=== PATIENT | male | born 1935 | race Caucasian/White ===

== ENCOUNTER → 2019-05-16 | Outpatient (CLI) | payer MEDICARE ==
[~2019-05-16] MED LIST: REGADENOSON 0.4 MG/5 ML SYR IV ONE
== END ==
LOC: NM 07:36
PROVIDERS: ATTEND Internal Medicine
DX: R07.9 Chest pain, unspecified (principal)
CPT/HCPCS: 78452; 93017; 93306; A9502; J2785

== ENCOUNTER 2019-09-14 10:12 | Inpatient (IN) | payer MEDICARE ==
[~2019-09-14] VITALS: Ht 172.7 cm; Wt 85.6 kg
--- OUTSIDE RECORDS SUMMARY | 2019-09-14 10:16 | XMS REPORT ---
Author Author [facility] Address Unknown Phone Unavailable Care Team Providers Care [employer] Name Role Phone Marissa HAYDEN Unavailable Unavailable Problems This patient has no known problems. Allergies, Adverse Reactions, Alerts This patient has no known allergies or adverse reactions. Medications This patient has no known medications. Results Test Description Test Time Test Comments Text Results Atomic Results Result Comments Stress Test - Treadmill ONLY 2019-05-22 11:40:00 [place] [address] Patient Name : ANGELICA STRANGE MR #: [id number] : 1935 Age/Sex: 83/M Adm Physician : AIMEE HAYDEN MD Admit Date : 05/16/19 Location : [place] Room/Bed : REPORT: Myoview Stress Test DATE OF STUDY: 05/16/2019 08:02:00 Stress Test - Treadmill ONLY PROCEDURE: Rest/stress single isotope SPECT imaging with pharmacologic stress and gated SPECT imaging. INDICATION: Chest pain. PROCEDURE IN DETAIL: Pharmacologic stress testing was performed with regadenoson per protocol. The heart rate was 63 beats per minute at rest and increased to 81 beats per minute during the regadenoson infusion. The resting blood pressure was 157/83 mmHg and increased to 182/82 mmHg, which is a normal response. The resting electrocardiogram demonstrated normal sinus rhythm with ST-segment abnormalities. There were no ST-segment changes suggestive of myocardial ischemia. Myocardial perfusion imaging was performed at rest following the injection of 11 mCi of tetrofosmin. At peak pharmacologic effect, the patient was injected with 32.7 mCi of tetrofosmin. Gated post-stress tomographic imaging was performed. FINDINGS: The overall quality of the study is fair. Left ventricular cavity is noted to be normal size on the rest and stress studies. SPECT images demonstrate a small moderate perfusion defect in the inferolateral wall on stress that is not present at rest. Gated SPECT imaging reveals normal myocardial thickening and wall motion. The left ventricular ejection fraction was calculated to be 50%. IMPRESSION: Myocardial perfusion imaging is abnormal. There is a small area of ischemia in the inferolateral wall. Left ventricular systolic function was normal without regional wall motion abnormalities. Aimee Hayden MD ABS/DAVEY /[id number] Signature Date Dictated By: AIMEE HAYDEN MD Transcribed By: DAVEY on 05/22/19 <Electronically signed by AIMEE HAYDEN MD><<Signature on File>>06/02/19 2301 COPY TO:
[2019-09-14] MEDS ORDERED: SODIUM CHLORIDE 0.9% 500ML 500 ML IV STA (10:20)
[2019-09-14] MEDS ORDERED: CEFTRIAXONE SOD 1 GM VIAL IV ONE (10:45)
[2019-09-14 10:56] LABS: BASOPHILS % 0.6 % (0.0-1.0); EOSINOPHILS # (AUTO) 0.1 (0.0-0.4); EOSINOPHILS % 1.2 % (0.0-6.0); HEMATOCRIT 40.7 % (38.2-49.6); HEMOGLOBIN 13.5 g/dL (14.0-18.0); LYMPHOCYTES # (AUTO) 0.8 (1.0-3.2); LYMPHOCYTES % 16.2 % (18.0-39.1); MEAN CORPUSCULAR HEMOGLOBIN 30.4 pg (28-32); MEAN CORPUSCULAR HGB CONC 33.2 g/dL (31-35); MEAN CORPUSCULAR VOLUME 91.7 fL (81-99); MONOCYTES # (AUTO) 0.3 (0.2-0.8); MONOCYTES % 6.4 % (4.4-11.3); NEUTROPHILS # (AUTO) 3.6 (2.1-6.9); NEUTROPHILS % 75.2 % (38.7-80.0); PLATELET COUNT 182 x10e3/uL (140-360); RED BLOOD COUNT 4.44 x10e6/uL (4.3-5.7)
[2019-09-14] MEDS ORDERED: CEFTRIAXONE SOD 1 GM/NS 50 ML 50 ML IV ONE (11:00)
[2019-09-14 11:11] LABS: INR 1.57; PROTHROMBIN TIME 19.3 seconds (11.9-14.5)
[2019-09-14 11:12] LABS: PARTIAL THROMBOPLASTIN TIME 40.8 seconds (23.8-35.5)
[2019-09-14 11:24] LABS: ALANINE AMINOTRANSFERASE 16 IU/L (0-55); ALBUMIN 3.5 g/dL (3.5-5.0); ALBUMIN/GLOBULIN RATIO 1.1 (0.8-2.0); ANION GAP 16.6 mmol/L (8-16); BLOOD UREA NITROGEN 21 mg/dL (7-26); BUN/CREATININE RATIO 18 (6-25); CALCIUM 8.9 mg/dL (8.4-10.2); CARBON DIOXIDE 20 mmol/L (22-29); CHLORIDE 107 mmol/L (98-107); CREATININE, SERUM 1.14 mg/dL (0.72-1.25); EST GLOMERULAR FILTRATION RATE > 60 ML/MIN (60-); GLUCOSE 172 mg/dL (74-118); POTASSIUM 3.6 mmol/L (3.5-5.1); SODIUM 140 mmol/L (136-145)
[2019-09-14] MEDS ORDERED: LIDOCAINE JELLY 2% 10ML URO-JET ONE (11:33)
[2019-09-14 11:35] LABS: ALKALINE PHOSPHATASE 67 IU/L (40-150)
[2019-09-14 11:36] LABS: CLARITY,URINE TURBID (CLEAR); COLOR,URINE RED (YELLOW)
[2019-09-14 11:41] LABS: BILIRUBIN,URINE MODERATE (NEGATIVE); KETONES,URINE 1+ (NEGATIVE); LEUKOCYTE ESTERASE ,URINE NEGATIVE (NEGATIVE); NITRITE,URINE POSITIVE (NEGATIVE); PROTEIN,URINE DIPSTICK 3+ (NEGATIVE); URINE UROBILINOGEN 1 mg/dL (0.2 - 1)
[2019-09-14 11:42] LABS: RBC,URINE >50 /HPF (0-5)
[2019-09-14] MEDS ORDERED: LACTATED RINGER'S 1,000 ML IV SCH (11:52)
[2019-09-14] MEDS ORDERED: ZOLPIDEM TARTRATE 5 MG TAB PO PRN (12:00)
[2019-09-14] MEDS ORDERED: CLONIDINE HCL 0.1 MG TAB PO PRN ×2 (12:00→12:30)
[2019-09-14] MEDS ORDERED: LIDOCAINE JELLY 2% 10ML URO-JET TOP ONE (12:00)
[2019-09-14] MEDS ORDERED: DIPHENHYDRAMINE HCL INJ 50 MG/ML VIAL IV PRN ×2 (12:00→12:30)
[2019-09-14] MEDS ORDERED: PROMETHAZINE 12.5MG/ NACL 0.9% 12.5 MG/50 ML BAG IV PRN ×2 (12:00→12:30)
[2019-09-14] MEDS ORDERED: ACETAMINOPHEN 325 MG TAB PO PRN (12:00)
[2019-09-14] MEDS ORDERED: SODIUM CHLORIDE 0.9% 250ML IRRIG IR ONE (12:00)
[2019-09-14] MEDS ORDERED: ONDANSETRON HCL INJ 2MG/ML 2ML 2 MG/ML VIAL IV PRN ×2 (12:00→12:30)
[2019-09-14] MEDS ORDERED: ENALAPRILAT IV INJ 1.25 MG/ML VIAL IV PRN ×2 (12:00→12:30)
--- NOTE | 2019-09-14 12:21 | NUR ---
PT ARRIVED TO ROOM 100 VIA STRETCHER; PT AWAKE, ALERT, NO SIGNS OF DISTRESS. ORIENTED X3. PT TRANSFERRED FROM STRETCHER TO BED; MILTON INTACT, DRAINING STERN RED URINE; IV TO LUE INTACT. NO COMPLAINTS AT THIS TIME. WILL CONTINUE TO MONITOR.
[2019-09-14 12:22] VITALS: BP 124/77
[2019-09-14] MEDS ORDERED: DEXTROSE 50% SYRINGE 50 ML IV PRN ×2 (12:30→12:45)
[2019-09-14 12:42] VITALS: BP 124/77
[2019-09-14] MEDS ORDERED: ATORVASTATIN CA20 MG PO (13:31)
[2019-09-14] MEDS ORDERED: LISINOPRIL10 MG PO (13:31)
[2019-09-14] MEDS ORDERED: METFORMIN HCL500 MG PO (13:31)
[2019-09-14] MEDS ORDERED: ASPIRIN81 MG PO (13:31)
[2019-09-14] MEDS ORDERED: AVODART0.5 MG PO (13:31)
[2019-09-14] MEDS ORDERED: CLOPIDOGREL75 MG PO (13:31)
[2019-09-14] MEDS ORDERED: TERAZOSIN HCL5 MG PO (13:31)
[2019-09-14] MEDS ORDERED: ELIQUIS5 MG PO (13:31)
[2019-09-14] MEDS: LACTATED RINGER'S 1,000 ML IV SCH (13:44)
--- NOTE | 2019-09-14 13:46 | Diagnostic Imaging Report ---
EXAM: CT Abdomen and Pelvis WITH contrast INDICATION: ^look for appy, diverticulitis,sbo, panreatitis, hernia, rup ^[id number] ^1200 ^Y COMPARISON: None. TECHNIQUE: Abdomen and pelvis were scanned utilizing a multidetector helical scanner from the lung base to the pubic symphysis after administration of IV contrast. Coronal and sagittal reformations were obtained. Dose modulation, iterative reconstruction, and/or weight based adjustment of the mA/kV was utilized to reduce the radiation dose to as low as reasonably achievable. Routine protocol was performed. Scan was performed when during portal venous phase. IV CONTRAST: 150 mL of Omnipaque 300 ORAL CONTRAST: Water COMPLICATIONS: None RADIATION DOSE: Total DLP: 608.44 mGy-cm Estimated effective dose: (DLP x 0.015 x size factor) mSv CTDIvol has been reviewed. It is below the limits set by the Radiation Protocol Committee (RPC). FINDINGS: LINES and TUBES: None. LOWER THORAX: Bilateral moderate pleural effusions with associated atelectasis. HEPATOBILIARY: No focal hepatic lesions. No biliary ductal dilation. GALLBLADDER: Not seen. SPLEEN: No splenomegaly. PANCREAS: No focal masses or ductal dilatation. ADRENALS: No adrenal nodules KIDNEYS/URETERS: Kidneys enhance symmetrically. No hydronephrosis. There are scattered too small to characterize right renal cortical hypodensites, likely benign. No stones. GI TRACT: No abnormal distention, or evidence of bowel obstruction. Mild wall thickening of the ascending and transverse colon is seen. Appendix is not clearly identified. There is however no fat stranding or adenopathy in the right lower quadrant to suggest appendicitis. PELVIC ORGANS/BLADDER: The bladder is collapsed surrounding a Newman catheter. There is an ill-defined enhancing soft tissue mass appears to arise from posterior aspect of bladder, indeterminate. LYMPH NODES: No lymphadenopathy. VESSELS: There is moderate atherosclerotic disease in the aorta and major arterial branches. PERITONEUM / RETROPERITONEUM: No free air or fluid. BONES: There are degenerative changes in the lumbar spine. SOFT TISSUES: Small fat-containing left inguinal hernia. IMPRESSION: 1. No evidence of appendicitis. 2. Mild wall thickening of the ascending and transverse colon likely infectious or inflammation in etiology. 3. An ill-defined enhancing soft tissue mass appears to arise from posterior aspect of bladder, indeterminate. Recommend further evaluation with cystoscopy. 4. Bilateral moderate pleural effusions with associated atelectasis. 5. Signed by: Los Ta MD on 09/14/2019 1:44 PM
[2019-09-14] MEDS ORDERED: INSULIN REGULAR, HUMAN 100 UNIT/1 ML 3ML VIAL SQ SCH (16:30)
[2019-09-14] MEDS: INSULIN REGULAR, HUMAN 100 UNIT/1 ML 3ML VIAL SQ SCH ×2 (16:42→21:04)
[2019-09-14] MEDS ORDERED: FAMOTIDINE 20 MG/2 ML VIAL IV SCH ×2 (17:00)
[2019-09-14 17:17] VITALS: BP 157/83
[2019-09-14] MEDS ORDERED: IOPAMIDOL 370 MG/ML 200 ML INFUS..BTL INJ ONE (18:16)
[2019-09-14 20:00] VITALS: BP 131/85
[2019-09-14] MEDS ORDERED: ACETAMINOPHEN 325 MG TAB ONE (20:43)
[2019-09-14] MEDS ORDERED: CEFTRIAXONE SOD 1 GM VIAL IV SCH ×2 (21:00)
--- NOTE | 2019-09-14 21:21 | NUR ---
CONTINUOUS IRRIGATION IS ON GOING, URINE LOOKS LIGHT PINK AT THIS TIME. NO ACUTE DISTRESS NOTED, PATIENT IS RESTING AND CLOSED EYES. TYLENOL PRN GIVEN, WILL CONTINUE TO MONITOR.
[2019-09-14 21:34] VITALS: BP 131/85
[2019-09-14] MEDS: ZOLPIDEM TARTRATE 5 MG TAB PO PRN (22:39)
[2019-09-14] MEDS: CEFTRIAXONE SOD 1 GM/NS 50 ML 50 ML IV SCH (22:39)
[2019-09-14 23:07] VITALS: BP 143/59
[2019-09-15] VITALS (8 sets, daily range): BP systolic 120–179; BP diastolic 59–95
[2019-09-15] MEDS: LACTATED RINGER'S 1,000 ML IV SCH ×2 (03:30→16:53)
--- NOTE | 2019-09-15 03:35 | NUR ---
PATIENT IS AWAKE, DENIED ANY PAIN OR FEELING PRESSURE TO BLADDER, IRRIGATION IS STILL CONTINUED, LIGHT PINK URINE NOTED, CLONIDINE PRN GIVEN DUE TO ELEVATED BP. WILL CONTINUE TO MONITOR.
--- NOTE | 2019-09-15 04:47 | NUR ---
RECHECKED BP AFTER CLONIDINE PRN GIVEN, ITS 146/95, PULSE 69. NO DISTRESS NOTED PATIENT RESTING.
--- NOTE | 2019-09-15 05:57 | NUR ---
CLARIFIED IV FLUID ORDER WITH DR ONTIVEROS, PER CONTINUE IV FLUID AT THE SAME RATE.
--- NOTE | 2019-09-15 06:12 | NUR ---
H&P cc: bloody urine HPI: 84yoM, PCP , Cardio , developed bloody urine on plavix and apixaban. Developed bloody urine for 2 days; PMH: DM2, HTN, CAD s/p 4 stent 05/2019 and 06/2019, hx cigs, PAF PSh: coronary stents x4 in 2019, hernia, cholecystectomy Allergies; see emr Fh/SH; ; hx cigs meds; see MAR ROS; no f/c/s/N/V/D/ANAYA/cp/sob/dizziness/vision changes/skin rash/focal limb weakness v/s; revd PE tired appearing anicteric ns1s2 mod bs soft nt nd BLOODY urine in de [place] garza no leg edema skin dry n. affect a&ox3; rivera labs/meds revd A/P Gross Hematuria Acute colitis DM2 Overweight BMI 28.6 Nicotine dependence in remission CAD with hx stents in 06/2019 PLAN Bladder irrigation; urology eval; IVF; hba1c/lipids; ssi; Leno Arteaga MD, PhD.
--- NOTE | 2019-09-15 07:00 | NUR ---
BEDSIDE SHIFT REPORT RECEIVED FROM MARIA ESTHER WILKS. PT DENIES NEEDS AT THIS TIME.
[2019-09-15 07:24] LABS: CHOL/HDL RATIO 2.5 (3.9-4.7)
[2019-09-15] MEDS: FAMOTIDINE 20 MG TAB PO SCH ×2 (07:58→16:51)
[2019-09-15] MEDS: INSULIN REGULAR, HUMAN 100 UNIT/1 ML 3ML VIAL SQ SCH ×4 (07:59→21:00)
[2019-09-15] MEDS ORDERED: ONDANSETRON HCL 4 MG ORAL DISINTEGRATING TAB PO PRN (08:15)
[2019-09-15] MEDS: DUTASTERIDE 0.5 MG CAP PO SCH (08:40)
[2019-09-15] MEDS: TERAZOSIN HCL 5 MG CAP PO SCH (08:40)
[2019-09-15] MEDS: LISINOPRIL 10 MG TAB PO SCH ×2 (08:40→16:52)
[2019-09-15] MEDS: CEFTRIAXONE SOD 1 GM/NS 50 ML 50 ML IV SCH ×2 (11:45→23:00)
[2019-09-15] MEDS: METOPROLOL TARTRATE 25 MG TAB PO SCH ×2 (14:04→22:00)
--- NOTE | 2019-09-15 20:00 | NUR ---
INITIAL ASSESSMENT COMPLETE, IV INTACT, C/O PAIN IN BLADDER AREA, CONTINUE TO MONITOR IRRIGATION AND MILTON, LEAKING AT THE TIP SITE, 24 FR MILTON WITH THREE WAY CATH, CALL LIGHT IN REACH, ASSIST TO BATHROOM WHEN NEEDED. NO DISTRESS NOTED, VS WNL
[2019-09-15] MEDS ORDERED: ATORVASTATIN 20 MG TAB PO SCH (21:00)
--- NOTE | 2019-09-15 21:00 | NUR ---
IRRIGATION TO MILTON, TWO LARGE CLOTS EXTRACTED, URINE FLOWING WELL NOW, IRRIGATION CONTINUES TO FLOW, URINE IN STRAWBERRY IN COLOR, MINIMAL CLOTS NOTED IN THE MILTON BAG, CONTINUE TO MONITOR.
[2019-09-15] MEDS: MORPHINE SULFATE INJ 4 MG/ML INJ 1ML IV PRN (21:03)
--- NOTE | 2019-09-15 23:56 | Consultation ---
DATE OF CONSULTATION: 09/15/2019 Urology Consultation REASON FOR CONSULTATION: Gross hematuria. HISTORY OF PRESENT ILLNESS: Cristian Harris is an 84-year-old man, who has never had hematuria in the past. He has never seen a urologist in the past. Denies urolithiasis, urinary tract infections and microscopic hematuria. The patient had severe gross hematuria, reported to the emergency room, and was subsequently admitted. The patient has also been on blood thinners due to coronary artery disease and stents. PAST MEDICAL AND SURGICAL HISTORY: 1. Coronary artery disease, status post coronary stenting x4. 2. Atrial fibrillation. 3. Hyperlipidemia. 4. Diabetes mellitus. 5. Hypertension. 6. Known benign prostatic hypertrophy. 7. Status post cholecystectomy. 8. Status post tonsillectomy as a child. 9. Status post umbilical herniorrhaphy. ALLERGIES: NONE KNOWN. CURRENT MEDICATIONS: Please refer to the MAR. SOCIAL HISTORY: The patient denies cigarette smoking. He reports pipe smoking from time when he was 16-year-old until last May. He denies ethanol or drug use. 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 FAMILY HISTORY: Noncontributory to the active urological problems. REVIEW OF SYSTEMS: Discussed as above history of present illness and past medical history, otherwise negative for all systems. PHYSICAL EXAMINATION: GENERAL: Healthy-appearing 84-year-old man sitting up in bed, in no apparent distress. He is currently afebrile. VITAL SIGNS: Currently stable. ABDOMEN: Soft, nondistended, nontender without costovertebral angle tenderness. Kidneys not palpable without hepatosplenomegaly. No obvious evidence of hernia. GENITOURINARY: Testes descended bilaterally and bilaterally nontender. The patient has an uncircumcised male phallus with phimosis. There is a 26-Welsh Newman catheter in place with a 30 mL balloon with clear efflux, but thick blood around the Newman catheter coming out of the meatus. According to the nurses, the patient had blood clots and clot retention last night. For the remaining physical examination systems, please refer to the admission history and physical on the chart. LABORATORY STUDIES: CT scan of the abdomen and pelvis was done as a hematuria protocol. It revealed mild wall thickening of the ascending and transverse colon and ill-defined enhancing soft tissue mass present in the posterior aspect of the bladder, which is indeterminate cystoscopy was recommended by the radiologist. White blood cell count 4810, hemoglobin 13.5, and platelets 182,000, the patient's hemoglobin A1c is 7.3. His creatinine is normal at 1.14. Urinalysis significant for greater than 50 RBCs with glycosuria present. There was nitrite positive urine. Urine culture is pending. CT scanning also revealed possible small renal cysts. ASSESSMENT: 1. Gross hematuria. 2. Benign prostatic hyperplasia. 3. Phimosis. 4. Anemia. 5. Glycosuria. 6. Possible urinary tract infection. 7. Newman catheter in situ. 8. Urinary retention. 9. Coagulopathy due to blood thinners. 10. Possible small renal cyst on the right-hand side. 11. Possible bladder mass. PLAN: 1. Continue bladder irrigation. 2. Hold all anticoagulation and all anti-platelet drugs. 3. Once the patient's anticoagulation is fully reversed and out of his system, we will plan to take the patient to the operating room for cystoscopy, retrograde pyelograms, and indicated procedures. Thank you much for involving us in care of your patient. We will be able to follow along with you as well as an outpatient. Nick Drew MD OH/MODL /[id number] cc: Jose Guadalupe Lau DO
[2019-09-16] VITALS (7 sets, daily range): BP systolic 123–173; BP diastolic 73–95
--- NOTE | 2019-09-16 00:46 | Consultation ---
DATE OF CONSULTATION: 09/15/2019 Cardiology Consult Note REASON FOR CONSULT: Atrial fibrillation, on anticoagulation. CHIEF COMPLAINT: Hematuria. HISTORY OF PRESENT ILLNESS: The patient is an 84-year-old man, known to our clinic. He is a patient of , has a history of atrial fibrillation, on apixaban as an outpatient, who presents with hematuria at baseline class 3, stable dyspnea on exertion. Denies any orthopnea or PND. Bladder irrigation is ongoing. Denies any chest pain at this time. Anticoagulation is being held. Hemodynamically stable otherwise. PAST MEDICAL HISTORY: 1. Atrial fibrillation. 2. Hypertension. 3. Hyperlipidemia. 4. Chronic diastolic heart failure. 5. Mild aortic stenosis. 6. Oarl-bv-tuqslwcc aortic regurgitation. SOCIAL HISTORY: He does not smoke, drink, or abuse drugs. FAMILY HISTORY: Noncontributory. REVIEW OF SYSTEMS: As per HPI, otherwise negative. OUTPATIENT MEDICATIONS: Reviewed. ALLERGIES: REVIEWED. NO KNOWN DRUG ALLERGIES. OBJECTIVE: VITAL SIGNS: Temperature afebrile, pulse 63, respiratory rate 18, blood pressure 120/60, saturating 99% on room air. GENERAL: Elderly man, well developed, well nourished. CARDIOVASCULAR: Regular rate and rhythm. No murmurs, rubs, or gallops. LUNGS: Clear to auscultation bilaterally. ABDOMEN: Soft, nontender, nondistended. NEURO AND PSYCH: Alert, oriented to person, place, and time. Normal affect. INPATIENT MEDICATIONS: Reviewed. LABORATORY DATA: Reviewed. TELEMETRY DATA: Reviewed, shows normal sinus rhythm. IMAGING DATA: Reviewed. CT of abdomen and pelvis shows an ill-defined enhancing soft tissue mass in the posterior aspect of the bladder. ASSESSMENT/PLAN: 1. Paroxysmal atrial fibrillation, currently in sinus rhythm. 2. Chronic diastolic heart failure. 3. Mild aortic stenosis. 4. Wjrx-yn-vbfftaza aortic regurgitation. 5. Gross hematuria. 6. Possible bladder mass. PLAN: Given gross hematuria, discontinue apixaban for atrial fibrillation and hold all anticoagulation and antiplatelet agents. The patient currently rate controlled. Continue metoprolol 25 mg q. 8 hours. Otherwise, stable from a cardiovascular standpoint. Thank you for this consult. We will continue to follow. MD BENITA Thrasher/DAVEY /[id number]
[2019-09-16] MEDS: LACTATED RINGER'S 1,000 ML IV SCH (04:30)
[2019-09-16] MEDS: MORPHINE SULFATE INJ 4 MG/ML INJ 1ML IV PRN ×3 (05:33→21:45)
--- NOTE | 2019-09-16 06:06 | NUR ---
Progress note- IM O/N see below ROS; no f/c/s/N/V/D/ANAYA/cp/sob/dizziness/vision changes/skin rash/focal limb weakness v/s; revd PE tired appearing anicteric ns1s2 mod bs soft nt nd BLOODY urine in de [place] garza no leg edema skin dry n. affect a&ox3; rivera labs/meds revd A/P Gross Hematuria Acute colitis DM2 Overweight BMI 28.6 Nicotine dependence in remission CAD with hx stents in 06/2019 PLAN Bladder irrigation; urology eval; IVF; hba1c/lipids; ssi; 09/16/19 Hba1c/LDL 7.3/41; f/u cystoscopy; check H/H; Uncontrolled HTN- adjust meds; Leno Arteaga MD, PhD.
[2019-09-16] MEDS: NIFEDIPINE CR 30 MG TAB PO SCH ×2 (06:15→09:18)
--- NOTE | 2019-09-16 07:00 | NUR ---
RECEIVED BEDSIDE REPORT FROM EFE SALAZAR. PATIENT RESTING AT THIS TIME, NO VISIBLE SIGNS OF DISTRESS NOTED. CALL LIGHT WITHIN REACH.
--- NOTE | 2019-09-16 07:25 | NUR ---
BEDSIDE REPORT GIVEN TO ON COMING SHIFT, 16,500 OUT IN MILTON BAG WITH CONTINUOUS IRRIGATION, 18,000 CC USED IN IRRIGATION FLUIDS, PAIN MEDS GIVEN THIS AM FOR BLADDER TENDERNESS, PT IS ALERT AND AWAKE FOR BEDSIDE REPORT
[2019-09-16 07:52] LABS: HEMOGLOBIN 12.3 g/dL (14.0-18.0)
[2019-09-16 07:53] LABS: HEMATOCRIT 37.5 % (38.2-49.6)
[2019-09-16] MEDS: FAMOTIDINE 20 MG TAB PO SCH ×2 (09:16→16:51)
[2019-09-16] MEDS: DUTASTERIDE 0.5 MG CAP PO SCH (09:17)
[2019-09-16] MEDS: TERAZOSIN HCL 5 MG CAP PO SCH (09:17)
[2019-09-16] MEDS: LISINOPRIL 10 MG TAB PO SCH ×2 (09:18→16:51)
[2019-09-16] MEDS: METOPROLOL TARTRATE 25 MG TAB PO SCH ×2 (09:20→21:45)
[2019-09-16] MEDS: INSULIN REGULAR, HUMAN 100 UNIT/1 ML 3ML VIAL SQ SCH ×4 (09:31→21:00)
[2019-09-16] MEDS: CEFTRIAXONE SOD 1 GM/NS 50 ML 50 ML IV SCH ×2 (11:23→23:23)
--- NOTE | 2019-09-16 11:57 | Progress Note ---
DATE: 09/16/2019 Cardiology Progress Note SUBJECTIVE: The patient reports some mild bladder pain. No chest pain, palpitations, or shortness of breath. OBJECTIVE: VITAL SIGNS: Temperature is 97.6, heart rate is 80, respirations are 20, blood pressure is 173/95, and oxygen saturation 95% on room air. GENERAL: Well-appearing, in no apparent distress. Alert and oriented x3. HEAD: Normocephalic and atraumatic. EYES: Extraocular muscles are intact. Conjunctivae are clear. CARDIOVASCULAR: He has regular rate and rhythm. No murmurs. LUNGS: Clear to auscultation. ABDOMEN: Soft, nontender, and nondistended. EXTREMITIES: No clubbing, cyanosis, or edema. LABORATORY DATA: Reviewed. Hemoglobin is 12.3. CARDIOVASCULAR MEDICATIONS: Reviewed. Nifedipine 30, metoprolol tartrate 50 mg b.i.d., and atorvastatin 40. IMPRESSION: 1. Hematuria. 2. Possible bladder mass. 3. Mild aortic stenosis. 4. Mriq-tw-gysbdexm aortic regurgitation. 5. Chronic diastolic heart failure. 6. Paroxysmal atrial fibrillation, currently in normal sinus rhythm. RECOMMENDATIONS: Continue hematuria treatment per Urology. The patient may proceed with any scheduled procedures. We will continue to hold anticoagulation and anti-platelet agents. Continue rate-controlling agents with metoprolol. The patient's blood pressure is elevated, however, just received his Procardia dose and we will continue to titrate this as needed. DO ZAMZAM Ocampo/MODL /[id number]
--- NOTE | 2019-09-16 13:40 | NUR ---
Visit made by the Spiritual Care Department Pastoral Visitor, Miriam Lira. Pt sleeping soundly and no family present. Pastoral Visitor left a card describing availability of vacuum truck driver and instructions on how to contact a vacuum truck driver. MADDI SMITH Cane Splicer Spiritual Care Department O: [phone]
[2019-09-16] MEDS: B&O 60MG R/S 60 MG SUPP PR PRN (16:45)
[2019-09-16] MEDS: ATORVASTATIN 40 MG TAB PO SCH (21:44)
[2019-09-16] MEDS: ZOLPIDEM TARTRATE 5 MG TAB PO PRN (21:45)
[2019-09-17] VITALS (8 sets, daily range): BP systolic 111–139; BP diastolic 59–74
[2019-09-17 05:33] LABS: BASOPHILS % 0.4 % (0.0-1.0); EOSINOPHILS % 0.5 % (0.0-6.0); HEMATOCRIT 33.3 % (38.2-49.6); HEMOGLOBIN 10.9 g/dL (14.0-18.0); LYMPHOCYTES # (AUTO) 1.3 (1.0-3.2); LYMPHOCYTES % 14.8 % (18.0-39.1); MEAN CORPUSCULAR HEMOGLOBIN 30.4 pg (28-32); MEAN CORPUSCULAR HGB CONC 32.7 g/dL (31-35); MEAN CORPUSCULAR VOLUME 92.8 fL (81-99); MONOCYTES # (AUTO) 0.7 (0.2-0.8); MONOCYTES % 8.5 % (4.4-11.3); NEUTROPHILS # (AUTO) 6.4 (2.1-6.9); NEUTROPHILS % 75.4 % (38.7-80.0); PLATELET COUNT 162 x10e3/uL (140-360); RED BLOOD COUNT 3.59 x10e6/uL (4.3-5.7); RED CELL DISTRIBUTION WIDTH 13.3 % (11.7-14.4)
[2019-09-17 05:45] LABS: INR 1.32; PROTHROMBIN TIME 16.8 seconds (11.9-14.5)
[2019-09-17 05:46] LABS: PARTIAL THROMBOPLASTIN TIME 39.4 seconds (23.8-35.5)
[2019-09-17 05:56] LABS: ANION GAP 15.6 mmol/L (8-16); CALCIUM 8.6 mg/dL (8.4-10.2); CREATININE, SERUM 1.32 mg/dL (0.72-1.25); POTASSIUM 3.6 mmol/L (3.5-5.1)
--- NOTE | 2019-09-17 06:16 | NUR ---
Progress note- IM O/N see below ROS; no f/c/s/N/V/D/ANAYA/cp/sob/dizziness/vision changes/skin rash/focal limb weakness v/s; revd PE tired appearing anicteric ns1s2 mod bs soft nt nd BLOODY urine in de [place] garza no leg edema skin dry n. affect a&ox3; rivera labs/meds revd A/P Gross Hematuria Acute colitis DM2 Overweight BMI 28.6 Nicotine dependence in remission CAD with hx stents in 06/2019 PLAN Bladder irrigation; urology eval; IVF; hba1c/lipids; ssi; 09/16/19 Hba1c/LDL 7.3/41; f/u cystoscopy; check H/H; Uncontrolled HTN- adjust meds; 09/17 Hb somewhat stable; Strep viridans UTI; KENIA- mild; monitor; f/u cystoscopy. Leno Arteaga MD, PhD.
[2019-09-17] MEDS: MORPHINE SULFATE INJ 4 MG/ML INJ 1ML IV PRN ×3 (07:12→23:42)
[2019-09-17] MEDS: INSULIN REGULAR, HUMAN 100 UNIT/1 ML 3ML VIAL SQ SCH ×4 (07:30→21:49)
[2019-09-17] MEDS: FAMOTIDINE 20 MG TAB PO SCH ×2 (07:30→16:54)
--- NOTE | 2019-09-17 07:30 | NUR ---
Received patient this morning and alert and responsive, no resp distress, pains well managed and call light within reach, will monitor. Report received and rounds completed.
[2019-09-17] MEDS: DUTASTERIDE 0.5 MG CAP PO SCH (08:24)
[2019-09-17] MEDS: TERAZOSIN HCL 5 MG CAP PO SCH (08:24)
[2019-09-17] MEDS: NIFEDIPINE CR 30 MG TAB PO SCH (08:25)
[2019-09-17] MEDS: METOPROLOL TARTRATE 25 MG TAB PO SCH ×2 (08:25→21:40)
[2019-09-17] MEDS: LISINOPRIL 10 MG TAB PO SCH ×2 (08:25→16:55)
[2019-09-17] MEDS: CEFTRIAXONE SOD 1 GM/NS 50 ML 50 ML IV SCH (11:45)
--- NOTE | 2019-09-17 11:59 | NUR ---
Rounds by Dr. Drew and will not be performing procedure yet because patient is still anticoagulated.
[2019-09-17] MEDS: AMPICILLIN SOD 1 GM/NS 50ML 50 ML IV SCH ×2 (14:00→21:46)
--- NOTE | 2019-09-17 15:58 | NUR ---
Patient a/ox3, in bed and Newman in place draining hematuria with CBI, pains well managed, will monitor, call light within reach
--- NOTE | 2019-09-17 19:00 | NUR ---
RECEIVED PATIENT IN BEDSIDE SHIFT REPORT. PATIENT RESTING IN BED AT THIS TIME, REPORTS BLADDER SPASMS, WILL ADMINISTER B&O SUPPOSITORY. MILTON DRAINING DARK RED URINE. CBI RUNNING. IV TO L HAND 20G ASYMPTOMATIC, INTACT, AND PATENT. NO S&S OF DISTRESS NOTED. BED LOCKED IN LOWEST POSITION, SIDE RAILS UPX2, CALL LIGHT IN REACH.
--- NOTE | 2019-09-17 20:00 | NUR ---
MILTON NOT DRAINING, MANUALLY IRRIGATED AT THIS TIME. ONE LARGE CLOT NOTED. MILTON NOW DRAINING EASILY, CBI RUNNING, PINK URINE NOTED. WILL CONTINUE TO MONITOR DRAINAGE CLOSELY.
[2019-09-17] MEDS: B&O 60MG R/S 60 MG SUPP PR PRN (21:39)
[2019-09-17] MEDS: ATORVASTATIN 40 MG TAB PO SCH (21:40)
--- NOTE | 2019-09-17 22:00 | NUR ---
IV NOTED TO BE LEAKING AT THIS TIME. REMOVED FROM L HAND, CATHETER TIP INTACT, PRESSURE DRESSING APPLIED. NEW IV PLACED TO R HAND, 20G.
[2019-09-18] VITALS (8 sets, daily range): BP systolic 117–148; BP diastolic 60–71
--- NOTE | 2019-09-18 00:51 | NUR ---
URINE NOTED TO BE LIGHT PINK, NO CLOTS NOTED. CBI RUNNING.
[2019-09-18] MEDS: AMPICILLIN SOD 1 GM/NS 50ML 50 ML IV SCH ×3 (06:19→21:18)
[2019-09-18] MEDS: MORPHINE SULFATE INJ 4 MG/ML INJ 1ML IV PRN ×3 (06:26→20:51)
--- NOTE | 2019-09-18 06:32 | NUR ---
Progress note- IM O/N see below ROS; no f/c/s/N/V/D/ANAYA/cp/sob/dizziness/vision changes/skin rash/focal limb weakness v/s; revd PE tired appearing anicteric ns1s2 mod bs soft nt nd BLOODY urine in de [place] garza no leg edema skin dry n. affect a&ox3; rivera labs/meds revd A/P Gross Hematuria Acute colitis DM2 Overweight BMI 28.6 Nicotine dependence in remission CAD with hx stents in 06/2019 PLAN Bladder irrigation; urology eval; IVF; hba1c/lipids; ssi; 09/16/19 Hba1c/LDL 7.3/41; f/u cystoscopy; check H/H; Uncontrolled HTN- adjust meds; 09/17 Hb somewhat stable; Strep viridans UTI; KENIA- mild; monitor; f/u cystoscopy. 09/18 check labs; Leno Arteaga MD, PhD.
[2019-09-18 07:05] LABS: BASOPHILS % 0.1 % (0.0-1.0); EOSINOPHILS # (AUTO) 0.1 (0.0-0.4); EOSINOPHILS % 0.8 % (0.0-6.0); HEMATOCRIT 34.2 % (38.2-49.6); HEMOGLOBIN 11.3 g/dL (14.0-18.0); LYMPHOCYTES % 11.1 % (18.0-39.1); MEAN CORPUSCULAR HEMOGLOBIN 30.5 pg (28-32); MEAN CORPUSCULAR VOLUME 92.2 fL (81-99); MONOCYTES # (AUTO) 0.8 (0.2-0.8); MONOCYTES % 9.3 % (4.4-11.3); NEUTROPHILS # (AUTO) 6.9 (2.1-6.9); NEUTROPHILS % 78.5 % (38.7-80.0); PLATELET COUNT 169 x10e3/uL (140-360); RED BLOOD COUNT 3.71 x10e6/uL (4.3-5.7); RED CELL DISTRIBUTION WIDTH 13.3 % (11.7-14.4)
--- NOTE | 2019-09-18 07:22 | NUR ---
Received patient and a/ox3, in bed and no distress, Newman draining c/y urine, hematuria resolved, pains well managed, call light within reach, will monitor.
[2019-09-18 07:23] LABS: ANION GAP 16.6 mmol/L (8-16); BLOOD UREA NITROGEN 31 mg/dL (7-26); BUN/CREATININE RATIO 31 (6-25); CALCIUM 8.5 mg/dL (8.4-10.2); CARBON DIOXIDE 21 mmol/L (22-29); CHLORIDE 107 mmol/L (98-107); CREATININE, SERUM 1.01 mg/dL (0.72-1.25); EST GLOMERULAR FILTRATION RATE > 60 ML/MIN (60-); GLUCOSE 127 mg/dL (74-118); POTASSIUM 3.6 mmol/L (3.5-5.1); SODIUM 141 mmol/L (136-145)
[2019-09-18] MEDS: INSULIN REGULAR, HUMAN 100 UNIT/1 ML 3ML VIAL SQ SCH ×4 (07:30→20:39)
[2019-09-18] MEDS: FAMOTIDINE 20 MG TAB PO SCH ×2 (07:30→17:15)
[2019-09-18] MEDS: DUTASTERIDE 0.5 MG CAP PO SCH (09:01)
[2019-09-18] MEDS: TERAZOSIN HCL 5 MG CAP PO SCH (09:02)
[2019-09-18] MEDS: LISINOPRIL 10 MG TAB PO SCH ×2 (09:02→17:15)
[2019-09-18] MEDS: METOPROLOL TARTRATE 25 MG TAB PO SCH ×2 (09:02→20:01)
[2019-09-18] MEDS: NIFEDIPINE CR 30 MG TAB PO SCH (09:02)
--- NOTE | 2019-09-18 19:00 | NUR ---
RECEIVED PATIENT IN BEDSIDE SHIFT REPORT. PATIENT RESTING AT THIS TIME. NO PAIN REPORTED. NO S&S OF DISTRESS NOTED. BED LOCKED IN LOWEST POSITION, SIDE RAILS UPX2, CALL LIGHT IN REACH. IV TO R HAND ASYMPTOMATIC, INTACT, AND PATENT. MILTON DRAINING CLEAR YELLOW URINE TO GRAVITY, CATHETER SECURED TO R THIGH, HANGING OFF OF FLOOR.
[2019-09-18] MEDS: ATORVASTATIN 40 MG TAB PO SCH (20:38)
--- NOTE | 2019-09-18 20:38 | NUR ---
OFFERED TO PATIENT TO HELP HIM OUT OF BED TO SIT IN CHAIR, HE HAS BEEN IN BED ALL DAY. PATIENT REFUSED STATING HE DOES NOT WANT TO GET UP BECAUSE HE WANTS TO SLEEP TO "FORGET ABOUT THE SURGERY TOMORROW." REINFORCED IMPORTANCE OF MOVEMENT, PATIENT STILL REFUSED. ALTERNATING PRESSURE PUMP ADDED TO BED AT THIS TIME.
[2019-09-19] VITALS (8 sets, daily range): BP systolic 130–153; BP diastolic 62–82
[2019-09-19] MEDS: MORPHINE SULFATE INJ 4 MG/ML INJ 1ML IV PRN ×2 (04:05→08:16)
[2019-09-19 05:21] LABS: BASOPHILS % 0.4 % (0.0-1.0); EOSINOPHILS # (AUTO) 0.1 (0.0-0.4); EOSINOPHILS % 1.3 % (0.0-6.0); HEMATOCRIT 33.8 % (38.2-49.6); HEMOGLOBIN 11.1 g/dL (14.0-18.0); LYMPHOCYTES # (AUTO) 1.1 (1.0-3.2); LYMPHOCYTES % 13.9 % (18.0-39.1); MEAN CORPUSCULAR HEMOGLOBIN 30.3 pg (28-32); MEAN CORPUSCULAR HGB CONC 32.8 g/dL (31-35); MEAN CORPUSCULAR VOLUME 92.3 fL (81-99); MONOCYTES # (AUTO) 0.7 (0.2-0.8); NEUTROPHILS # (AUTO) 5.9 (2.1-6.9); PLATELET COUNT 173 x10e3/uL (140-360); RED BLOOD COUNT 3.66 x10e6/uL (4.3-5.7); RED CELL DISTRIBUTION WIDTH 13.2 % (11.7-14.4)
[2019-09-19 05:43] LABS: INR 1.37; PROTHROMBIN TIME 17.8 seconds (11.9-14.5)
[2019-09-19 05:47] LABS: ANION GAP 15.1 mmol/L (8-16); BLOOD UREA NITROGEN 29 mg/dL (7-26); BUN/CREATININE RATIO 27 (6-25); CALCIUM 8.3 mg/dL (8.4-10.2); CARBON DIOXIDE 23 mmol/L (22-29); CHLORIDE 107 mmol/L (98-107); CREATININE, SERUM 1.06 mg/dL (0.72-1.25); EST GLOMERULAR FILTRATION RATE > 60 ML/MIN (60-); GLUCOSE 115 mg/dL (74-118); POTASSIUM 4.1 mmol/L (3.5-5.1); SODIUM 141 mmol/L (136-145)
[2019-09-19] MEDS: AMPICILLIN SOD 1 GM/NS 50ML 50 ML IV SCH ×3 (06:03→20:49)
--- NOTE | 2019-09-19 06:43 | NUR ---
Progress note- IM O/N see below ROS; no f/c/s/N/V/D/ANAYA/cp/sob/dizziness/vision changes/skin rash/focal limb weakness v/s; revd PE tired appearing anicteric ns1s2 mod bs soft nt nd BLOODY urine in de [place] garza no leg edema skin dry n. affect a&ox3; rivera labs/meds revd A/P Gross Hematuria Acute colitis DM2 Overweight BMI 28.6 Nicotine dependence in remission CAD with hx stents in 06/2019 PLAN Bladder irrigation; urology eval; IVF; hba1c/lipids; ssi; 09/16/19 Hba1c/LDL 7.3/41; f/u cystoscopy; check H/H; Uncontrolled HTN- adjust meds; 09/17 Hb somewhat stable; Strep viridans UTI; KENIA- mild; monitor; f/u cystoscopy. 09/18 check labs; 09/19 cystoscopy pending; Leno Arteaga MD, PhD.
--- NOTE | 2019-09-19 07:06 | NUR ---
Received patient this morning and a/ox3, in bed and no distress, Newman cath in place, CBI, call light within reach, no distress.
[2019-09-19] MEDS: FAMOTIDINE 20 MG TAB PO SCH ×2 (07:30→16:30)
[2019-09-19] MEDS: INSULIN REGULAR, HUMAN 100 UNIT/1 ML 3ML VIAL SQ SCH ×4 (07:30→20:38)
[2019-09-19] MEDS: DUTASTERIDE 0.5 MG CAP PO SCH (09:02)
[2019-09-19] MEDS: LISINOPRIL 10 MG TAB PO SCH ×2 (09:02→17:16)
[2019-09-19] MEDS: TERAZOSIN HCL 5 MG CAP PO SCH (09:02)
[2019-09-19] MEDS: NIFEDIPINE CR 30 MG TAB PO SCH (09:03)
[2019-09-19] MEDS: METOPROLOL TARTRATE 25 MG TAB PO SCH ×2 (09:03→20:37)
--- NOTE | 2019-09-19 11:12 | NUR ---
Patient picked up for procedure at this time
[2019-09-19] MEDS ORDERED: B&O 60MG R/S 60 MG SUPP PR ONE (11:21)
[2019-09-19] MEDS ORDERED: LIDOCAINE HCL 2% LOCAL INJ 5 ML SDV VIAL INJ ONE (18:01)
[2019-09-19] MEDS ORDERED: SEVOFLURANE INHAL SOLN 250 ML PEN BTL ONE (18:01)
[2019-09-19] MEDS ORDERED: PROPOFOL IV EMULSION 10 MG/ML 20 ML VIAL ONE (18:01)
--- NOTE | 2019-09-19 18:25 | NUR ---
Patient a/ox3, had cystoscopy and retrograde today with clot removal, new 3 way Newman inserted, mild hematuria, pains well managed, call light within reach, tolerated dinner, will monitor.
--- NOTE | 2019-09-19 19:00 | NUR ---
RECEIVED PATIENT IN BEDSIDE SHIFT REPORT. PATIENT RESTING IN BED AT THIS TIME. STATES HE FEELS NO PAIN, "NOTHING LIKE BEFORE THE SURGERY." CBI RUNNING SLOWLY. URINE IS STERN RED, BUT NO CLOTS NOTED. WILL MONITOR CBI CLOSELY. R HAND 20G IV ASYMPTOMATIC, INTACT, AND PATENT. NO S&S OF DISTRESS NOTED. BED LOCKED IN LOWEST POSITION, SIDE RAILS UPX2, CALL LIGHT IN REACH.
--- NOTE | 2019-09-19 19:06 | NUR ---
Report given to on coming nurse and rounds completed. Call light within reach and safety maintained.
--- NOTE | 2019-09-19 19:46 | Progress Note ---
DATE: 09/19/2019 Cardiology Progress Note SUBJECTIVE: The patient feeling well. Denies any chest pain or shortness of breath. OBJECTIVE: VITAL SIGNS: Temperature is 96.5, heart rate 79, respirations 16, blood pressure is 132/66, and oxygen saturation 96% on nasal cannula. GENERAL: Elderly appearing man, no apparent distress. CARDIOVASCULAR: Regular rate and rhythm. No murmurs. LUNGS: Clear to auscultation. ABDOMEN: Soft, nontender, nondistended. EXTREMITIES: Trace edema. CARDIOVASCULAR MEDICATIONS: Reviewed. LABORATORY DATA: Reviewed. Hemoglobin 11.1. Creatinine is 1.06. IMPRESSION: 1. Hematuria. 2. Bladder mass. 3. Mild aortic stenosis. 4. Zhhv-nd-gckulxcd aortic regurgitation. 5. Chronic diastolic heart failure. 6. Paroxysmal atrial fibrillation. RECOMMENDATIONS: Continue metoprolol for rate control. Continue to hold anticoagulation, anti-platelet agents. The patient has active hematuria, undergoing treatment per Urology. The patient's blood pressure is normal, on current antihypertensive regimen. Bihn Walsh DO BM/MODL /[id number]
[2019-09-19] MEDS: ATORVASTATIN 40 MG TAB PO SCH (20:37)
[2019-09-20] VITALS (10 sets, daily range): BP systolic 98–141; BP diastolic 56–77
--- NOTE | 2019-09-20 01:00 | NUR ---
PATIENT CALLED REQUESTING TO SIT ON SIDE OF BED. NOTED LINENS AND GOWN WERE DIRTY AND CHANGED THEM. OFFERED PATIENT BED BATH, WHICH HE CONTINUES TO REFUSE. PATIENT REQUESTED TO SIT ON TOILET. ASSISTED HIM TO TOILET WITH WALKER. NO BM NOTED. BLEEDING FROM CATHETER NOTED AND CLEANED. STATLOCK TOO TIGHT WHILE PATIENT IS AMBULATING, BUT OKAY WHEN LAYING IN BED. PATIENT VERY WEAK D/T REFUSING TO GET OUT OF BED MULTIPLE DAYS PRESURGERY. NEEDS AT LEAST ONE PERSON STANDBY ASSIST FOR NOW. ASSISTED PATIENT BACK TO BED. WILL CONTINUE TO MONITOR PATIENT CLOSELY.
[2019-09-20] MEDS: AMPICILLIN SOD 1 GM/NS 50ML 50 ML IV SCH ×3 (06:31→21:13)
--- NOTE | 2019-09-20 07:03 | NUR ---
Progress note- IM O/N see below ROS; no f/c/s/N/V/D/ANAYA/cp/sob/dizziness/vision changes/skin rash/focal limb weakness v/s; revd PE tired appearing anicteric ns1s2 mod bs soft nt nd BLOODY urine in [place] no leg edema skin dry n. affect a&ox3; rivera labs/meds revd A/P Gross Hematuria Acute colitis DM2 Overweight BMI 28.6 Nicotine dependence in remission CAD with hx stents in 06/2019 PLAN Bladder irrigation; urology eval; IVF; hba1c/lipids; ssi; 09/16/19 Hba1c/LDL 7.3/41; f/u cystoscopy; check H/H; Uncontrolled HTN- adjust meds; 09/17 Hb somewhat stable; Strep viridans UTI; KENIA- mild; monitor; f/u cystoscopy. 09/18 check labs; 09/19 cystoscopy pending; 09/20 Cystoscopy done- clot removed; continued bladder irrigation; plans for TURP. Leno Arteaga MD, PhD.
[2019-09-20] MEDS: INSULIN REGULAR, HUMAN 100 UNIT/1 ML 3ML VIAL SQ SCH ×4 (08:28→20:43)
[2019-09-20] MEDS: FAMOTIDINE 20 MG TAB PO SCH ×2 (08:32→17:24)
[2019-09-20] MEDS: TERAZOSIN HCL 5 MG CAP PO SCH (08:32)
[2019-09-20] MEDS: DUTASTERIDE 0.5 MG CAP PO SCH (08:32)
[2019-09-20] MEDS: LISINOPRIL 10 MG TAB PO SCH ×2 (08:33→17:00)
[2019-09-20] MEDS: NIFEDIPINE CR 30 MG TAB PO SCH (08:33)
[2019-09-20] MEDS: METOPROLOL TARTRATE 25 MG TAB PO SCH ×2 (08:33→21:13)
--- NOTE | 2019-09-20 14:27 | NUR ---
Nutrition Screen Note RD Recommendation for Physician: - Continue ADA 1800 diet as ordered Plan of Care: RD following, monitoring for tolerance and adequacy Nutrition reason for involvement: LOS Primary Diagnose(s): 1. Hematuria. 2. Bladder mass. PMH: DM, HTN, CAD s/p 4 stent 05/2019 and 06/2019 Ht: 68in Wt: 189lb BMI: 28.8kg/m2 IBW: 154lb+/- 10% RD Assessment: (09/20) Chart reviewed. Labs and meds reviewed. 84yo M, who was admitted for hematuria. BG at 150+, on insulin. HbA1c at 7.3. Visited pt in the room. Pt reported small appetite, which was at baseline. CORPORATE ADMINISTRATIVE ASSISTANT, pt was trying to cut down on his meal consumption to get his BG under control. Pt may have lost some weight from diet changes. Pt denied any nausea or vomiting. No complain of chewing or swallowing difficulty. No other question at this time. Will continue to monitor and follow. Current Diet: ADA 1800 Malnutrition Evaluation (09/20/2019) The patient does not meet criteria for a specified degree of malnutrition at this time. Will re-evaluate at follow-up as appropriate. Diet Education Needs Assessment: Diet education not indicated. Nutrition Care Level: low Signed: Cesia Schwarz, MS, RD, LD
[2019-09-20] MEDS: ATORVASTATIN 40 MG TAB PO SCH (21:13)
[2019-09-20] MEDS: ZOLPIDEM TARTRATE 5 MG TAB PO PRN (21:14)
[2019-09-21] VITALS (9 sets, daily range): BP systolic 113–135; BP diastolic 63–71
[2019-09-21 05:24] LABS: BASOPHILS % 0.5 % (0.0-1.0); EOSINOPHILS # (AUTO) 0.2 (0.0-0.4); EOSINOPHILS % 3.6 % (0.0-6.0); HEMATOCRIT 32.7 % (38.2-49.6); HEMOGLOBIN 10.6 g/dL (14.0-18.0); LYMPHOCYTES # (AUTO) 1.2 (1.0-3.2); LYMPHOCYTES % 19.8 % (18.0-39.1); MEAN CORPUSCULAR HEMOGLOBIN 29.9 pg (28-32); MEAN CORPUSCULAR HGB CONC 32.4 g/dL (31-35); MEAN CORPUSCULAR VOLUME 92.4 fL (81-99); MONOCYTES # (AUTO) 0.5 (0.2-0.8); MONOCYTES % 8.9 % (4.4-11.3); NEUTROPHILS # (AUTO) 3.9 (2.1-6.9); NEUTROPHILS % 66.9 % (38.7-80.0); PLATELET COUNT 203 x10e3/uL (140-360); RED BLOOD COUNT 3.54 x10e6/uL (4.3-5.7); RED CELL DISTRIBUTION WIDTH 13.2 % (11.7-14.4)
[2019-09-21] MEDS: AMPICILLIN SOD 1 GM/NS 50ML 50 ML IV SCH ×3 (05:28→21:24)
[2019-09-21 05:51] LABS: ANION GAP 13.4 mmol/L (8-16); BLOOD UREA NITROGEN 32 mg/dL (7-26); BUN/CREATININE RATIO 32 (6-25); CALCIUM 8.1 mg/dL (8.4-10.2); CARBON DIOXIDE 22 mmol/L (22-29); CHLORIDE 108 mmol/L (98-107); CREATININE, SERUM 0.99 mg/dL (0.72-1.25); EST GLOMERULAR FILTRATION RATE > 60 ML/MIN (60-); GLUCOSE 123 mg/dL (74-118); POTASSIUM 3.4 mmol/L (3.5-5.1); SODIUM 140 mmol/L (136-145)
[2019-09-21] MEDS: INSULIN REGULAR, HUMAN 100 UNIT/1 ML 3ML VIAL SQ SCH ×4 (07:30→21:24)
[2019-09-21] MEDS: DUTASTERIDE 0.5 MG CAP PO SCH (08:56)
[2019-09-21] MEDS: TERAZOSIN HCL 5 MG CAP PO SCH (08:56)
[2019-09-21] MEDS: FAMOTIDINE 20 MG TAB PO SCH ×2 (08:56→17:42)
[2019-09-21] MEDS: NIFEDIPINE CR 30 MG TAB PO SCH (08:57)
[2019-09-21] MEDS: LISINOPRIL 10 MG TAB PO SCH ×2 (08:57→17:42)
[2019-09-21] MEDS: METOPROLOL TARTRATE 25 MG TAB PO SCH ×2 (08:57→21:00)
--- NOTE | 2019-09-21 09:37 | NUR ---
Progress note- IM O/N see below ROS; no f/c/s/N/V/D/ANAYA/cp/sob/dizziness/vision changes/skin rash/focal limb weakness v/s; revd PE tired appearing anicteric ns1s2 mod bs soft nt nd BLOODY urine in [place] no leg edema skin dry n. affect a&ox3; rivera labs/meds revd A/P Gross Hematuria Acute colitis DM2 Overweight BMI 28.6 Nicotine dependence in remission CAD with hx stents in 06/2019 PLAN Bladder irrigation; urology eval; IVF; hba1c/lipids; ssi; 09/16/19 Hba1c/LDL 7.3/41; f/u cystoscopy; check H/H; Uncontrolled HTN- adjust meds; 09/17 Hb somewhat stable; Strep viridans UTI; KENIA- mild; monitor; f/u cystoscopy. 09/18 check labs; 09/19 cystoscopy pending; 09/20 Cystoscopy done- clot removed; continued bladder irrigation; plans for TURP. 09/21 replace K; f/u urology Leno Arteaga MD, PhD.
[2019-09-21] MEDS ORDERED: POTASSIUM CHLORIDE 20 MEQ TAB CR PO NR (10:00)
--- NOTE | 2019-09-21 18:47 | NUR ---
per dr gruber, was holding any further procedures until cardio completed pending procedures. per Dr Schreiber, they will not be doing any procedures at this time. updated dr gruber, orders recvd.
--- NOTE | 2019-09-21 18:50 | NUR ---
RECEIVED REPORT FROM PREVIOUS NURSE. CALL LIGHT WITHIN REACH. PATIENT IN BED. FRIEND AT BEDSIDE.
--- NOTE | 2019-09-21 18:53 | NUR ---
pt is to have breakfast at 7am then be NPO. start ivf at 7am also. MD to place consent order later
[2019-09-21] MEDS: ATORVASTATIN 40 MG TAB PO SCH (21:21)
[2019-09-21] MEDS: MORPHINE SULFATE INJ 4 MG/ML INJ 1ML IV PRN (22:10)
[2019-09-22] VITALS (8 sets, daily range): BP systolic 113–131; BP diastolic 60–84
--- NOTE | 2019-09-22 00:35 | Progress Note ---
DATE: 09/21/2019 Cardiology Progress Note SUBJECTIVE: No major events overnight. Denies any chest pain or shortness of breath. OBJECTIVE: VITAL SIGNS: Temperature afebrile, pulse 65, respiratory rate 18, blood pressure 113/68, saturating 97% on room air. GENERAL: Elderly man, in no acute distress. CARDIOVASCULAR: Regular rate and rhythm. No murmurs, rubs, or gallops. LUNGS: Clear to auscultation. ABDOMEN: Soft, nontender, nondistended. NEURO AND PSYCH: Alert and oriented to person, place, and time. Normal affect. EXTREMITIES: Warm, well perfused. Trace edema at the level of the ankles. INPATIENT MEDICATIONS: Reviewed. LABORATORY DATA: Reviewed. ASSESSMENT AND PLAN: 1. Hematuria. 2. Bladder mass. 3. Mild aortic stenosis. 4. Sohe-fs-tmhbolma aortic regurgitation. 5. Chronic diastolic heart failure. 6. Paroxysmal atrial fibrillation. RECOMMENDATIONS: The patient remains in normal sinus rhythm. Continue metoprolol for rate control. No anticoagulation given ongoing hematuria. The patient will be moderate risk for cardiovascular events given his age and cardiovascular function. No further cardiovascular assessment is necessary at this time. Okay to proceed urological procedures as needed. Thank you for this consult. We will continue to follow. MD BENITA Thrasher/DAVEY /[id number]
[2019-09-22] MEDS: AMPICILLIN SOD 1 GM/NS 50ML 50 ML IV SCH ×3 (05:49→21:47)
--- NOTE | 2019-09-22 07:00 | NUR ---
BEDSIDE SHIFT REPORT RECEIVED FROM JORI WILKS. PT DENIES NEEDS AT THIS TIME.
[2019-09-22 07:09] LABS: INR 1.22; PROTHROMBIN TIME 16.2 seconds (11.9-14.5)
[2019-09-22 07:10] LABS: PARTIAL THROMBOPLASTIN TIME 35.3 seconds (23.8-35.5)
--- NOTE | 2019-09-22 07:16 | NUR ---
Progress note- IM O/N see below ROS; no f/c/s/N/V/D/ANAYA/cp/sob/dizziness/vision changes/skin rash/focal limb weakness v/s; revd PE tired appearing anicteric ns1s2 mod bs soft nt nd BLOODY urine in [place] no leg edema skin dry n. affect a&ox3; rivera labs/meds revd A/P Gross Hematuria Acute colitis DM2 Overweight BMI 28.6 Nicotine dependence in remission CAD with hx stents in 06/2019 PLAN Bladder irrigation; urology eval; IVF; hba1c/lipids; ssi; 09/16/19 Hba1c/LDL 7.341; f/u cystoscopy; check H/H; Uncontrolled HTN- adjust meds; 09/17 Hb somewhat stable; Strep viridans UTI; KENIA- mild; monitor; f/u cystoscopy. 09/18 check labs; 09/19 cystoscopy pending; 09/20 Cystoscopy done- clot removed; continued bladder irrigation; plans for TURP. 09/21 replace K; f/u urology 09/22 TURP pending; Leno Arteaga MD, PhD.
[2019-09-22] MEDS: INSULIN REGULAR, HUMAN 100 UNIT/1 ML 3ML VIAL SQ SCH ×4 (07:30→21:39)
--- NOTE | 2019-09-22 07:30 | NUR ---
GAVE BEDSIDE SHIFT REPORT TO ONCOMING NURSE. CALL LIGHT WITHIN REACH. PATIENT IN BED. PATIENT IN NO PAIN OR DISTRESS.
[2019-09-22] MEDS: SODIUM CHLORIDE 0.9% 1000ML 1,000 ML IV SCH ×2 (07:31→17:00)
[2019-09-22] MEDS: DUTASTERIDE 0.5 MG CAP PO SCH (08:57)
[2019-09-22] MEDS: FAMOTIDINE 20 MG TAB PO SCH ×2 (08:57→16:30)
[2019-09-22] MEDS: METOPROLOL TARTRATE 25 MG TAB PO SCH ×2 (08:58→21:47)
[2019-09-22] MEDS: TERAZOSIN HCL 5 MG CAP PO SCH (08:58)
[2019-09-22] MEDS: LISINOPRIL 10 MG TAB PO SCH ×2 (08:59→17:00)
[2019-09-22] MEDS: NIFEDIPINE CR 30 MG TAB PO SCH (08:59)
--- NOTE | 2019-09-22 15:14 | Progress Note ---
DATE: 09/22/2019 Cardiology progress note. SUBJECTIVE: The patient denies chest pain or shortness of breath. Hematuria has improved. OBJECTIVE: VITAL SIGNS: Temperature 96.5 degrees, pulse 69, respiratory rate 20, blood pressure 121/60, and oxygen saturation 98% on room air. GENERAL: Elderly man in no acute distress, awake and alert. LUNGS: Clear to auscultation bilaterally. No wheezes or crackles. CARDIOVASCULAR: Normal rate. Regular rhythm. No murmur. Normal S1, S2. ABDOMEN: Soft and nontender. EXTREMITIES: No edema. NEUROLOGIC: Nonfocal exam. Faint hematuria noted in the Newman catheter. CARDIAC MEDICATIONS: 1. Nifedipine 30 mg p.o. daily. 2. Lisinopril 10 mg p.o. b.i.d. 3. Atorvastatin 40 mg p.o. at bedtime. 4. Metoprolol tartrate 50 mg p.o. q.12 hours. LABORATORY DATA: None today. ASSESSMENT: 1. Hematuria. 2. Bladder mass. 3. Mild aortic stenosis. 4. Mild to moderate aortic regurgitation. 5. Chronic diastolic heart failure. 6. Paroxysmal atrial fibrillation. PLAN: Continue current cardiac medications. No anticoagulation at this time given ongoing hematuria. The patient should resume aspirin and Plavix given recent LAD/PCI. Monitor closely. No further cardiac evaluation is indicated at this time. Thank you for this consult. We will continue to follow. Aimee Hayden MD ABS/MODL /[id number]
[2019-09-22] MEDS ORDERED: BUPIVACAINE HCL 0.5% INJ 30 ML VIAL INJ ONE (16:37)
[2019-09-22] MEDS ORDERED: BACITRACIN 50,000 UNIT VIAL ONE (17:10)
[2019-09-22] MEDS ORDERED: BACITRACIN ZINC 15 GM OINT ONE (17:10)
[2019-09-22] MEDS ORDERED: B&O 60MG R/S 60 MG SUPP PR PRN (17:30)
[2019-09-22] MEDS ORDERED: SEVOFLURANE INHAL SOLN 250 ML PEN BTL ONE (18:22)
[2019-09-22] MEDS ORDERED: DEXAMETHASONE SOD PHOS INJ 4 MG/ML VIAL ONE (18:22)
[2019-09-22] MEDS ORDERED: PROPOFOL IV EMULSION 10 MG/ML 20 ML VIAL ONE (18:22)
[2019-09-22] MEDS ORDERED: ONDANSETRON HCL INJ 2MG/ML 2ML 2 MG/ML VIAL ONE (18:22)
[2019-09-22] MEDS ORDERED: B&O 60MG R/S 60 MG SUPP PR ONE (18:38)
--- NOTE | 2019-09-22 19:05 | NUR ---
RECEIVED BEDSIDE SHIFT REPORT FROM PREVIOUS NURSE. PATIENT IN RECOVERY ROOM AND FAMILY AT BEDSIDE.
[2019-09-22] MEDS ORDERED: FENTANYL CITRATE/PF 100MCG/2 ML INJ ONE (19:23)
--- NOTE | 2019-09-22 19:48 | NUR ---
PATIENT ARRIVED VIA STRETCHER FROM RECOVERY ROOM. RECEIVED REPORT FROM ARIELLA RECOVERY ROOM NURSE. PATIENT ARRIVED WITH CBI AND MILTON DRAINING LIGHT PINK/CLEAR URINE. PATIENT IN PAIN AND REQUESTING PAIN MEDICATION. CALL LIGHT WITHIN REACH.
[2019-09-22] MEDS: ACETAMINOPHEN/CODEINE 300MG - 30MG TAB PO PRN (21:36)
[2019-09-22] MEDS: ATORVASTATIN 40 MG TAB PO SCH (21:44)
[2019-09-22] MEDS: PHENAZOPYRIDINE HCL 100 MG TAB PO SCH (21:48)
[2019-09-23] VITALS (8 sets, daily range): BP systolic 103–126; BP diastolic 59–75
[2019-09-23] MEDS: SODIUM CHLORIDE 0.9% 1000ML 1,000 ML IV SCH ×3 (02:31→21:34)
[2019-09-23] MEDS: AMPICILLIN SOD 1 GM/NS 50ML 50 ML IV SCH ×3 (06:00→21:34)
[2019-09-23 06:06] LABS: BASOPHILS % 0.1 % (0.0-1.0); HEMATOCRIT 37.3 % (38.2-49.6); HEMOGLOBIN 11.7 g/dL (14.0-18.0); LYMPHOCYTES # (AUTO) 0.5 (1.0-3.2); LYMPHOCYTES % 6.5 % (18.0-39.1); MEAN CORPUSCULAR HEMOGLOBIN 29.5 pg (28-32); MEAN CORPUSCULAR HGB CONC 31.4 g/dL (31-35); MEAN CORPUSCULAR VOLUME 94.2 fL (81-99); MONOCYTES # (AUTO) 0.4 (0.2-0.8); MONOCYTES % 5.3 % (4.4-11.3); NEUTROPHILS # (AUTO) 6.8 (2.1-6.9); NEUTROPHILS % 87.5 % (38.7-80.0); PLATELET COUNT 230 x10e3/uL (140-360); RED BLOOD COUNT 3.96 x10e6/uL (4.3-5.7); RED CELL DISTRIBUTION WIDTH 12.9 % (11.7-14.4)
--- NOTE | 2019-09-23 06:06 | NUR ---
Progress note- IM O/N see below ROS; no f/c/s/N/V/D/ANAYA/cp/sob/dizziness/vision changes/skin rash/focal limb weakness v/s; revd PE tired appearing anicteric ns1s2 mod bs soft nt nd BLOODY urine in [place] no leg edema skin dry n. affect a&ox3; rivera labs/meds revd A/P Gross Hematuria Acute colitis DM2 Overweight BMI 28.6 Nicotine dependence in remission CAD with hx stents in 06/2019 PLAN Bladder irrigation; urology eval; IVF; hba1c/lipids; ssi; 09/16/19 Hba1c/LDL 7.341; f/u cystoscopy; check H/H; Uncontrolled HTN- adjust meds; 09/17 Hb somewhat stable; Strep viridans UTI; KENIA- mild; monitor; f/u cystoscopy. 09/18 check labs; 09/19 cystoscopy pending; 09/20 Cystoscopy done- clot removed; continued bladder irrigation; plans for TURP. 09/21 replace K; f/u urology 09/22 TURP pending; 09/23 f/u labs; s/p TURP; d/c planning; Leno Arteaga MD, PhD.
[2019-09-23 06:31] LABS: ANION GAP 13.4 mmol/L (8-16); BLOOD UREA NITROGEN 25 mg/dL (7-26); BUN/CREATININE RATIO 27 (6-25); CALCIUM 7.8 mg/dL (8.4-10.2); CARBON DIOXIDE 19 mmol/L (22-29); CHLORIDE 113 mmol/L (98-107); CREATININE, SERUM 0.92 mg/dL (0.72-1.25); EST GLOMERULAR FILTRATION RATE > 60 ML/MIN (60-); GLUCOSE 129 mg/dL (74-118); POTASSIUM 4.4 mmol/L (3.5-5.1); SODIUM 141 mmol/L (136-145)
--- NOTE | 2019-09-23 07:00 | NUR ---
BEDSIDE SHIFT REPORT RECEIVED FROM DESI WILKS. PT DENIES NEEDS AT THIS TIME.
--- NOTE | 2019-09-23 07:18 | NUR ---
GAVE BEDSIDE SHIFT REPORT TO ONCOMING NURSE. CALL LIGHT WITHIN REACH. PATIENT IN BED. PATIENT IS A&OX3. MILTON DRAINING WELL AND LIGHT PINK COLOR
--- NOTE | 2019-09-23 08:30 | NUR ---
CONTINUOUS BLADDER IRRRIGATION STOPPED AT THIS TIME ORDERED. URINE CLEAR TO PINK. NO CLOTS PRESENT.
[2019-09-23] MEDS: CLOPIDOGREL BISULFATE 75 MG TAB PO SCH (08:51)
[2019-09-23] MEDS: FAMOTIDINE 20 MG TAB PO SCH ×2 (08:51→17:44)
[2019-09-23] MEDS: TERAZOSIN HCL 5 MG CAP PO SCH (08:51)
[2019-09-23] MEDS: DOCUSATE SODIUM 100 MG CAP PO SCH ×2 (08:51→17:44)
[2019-09-23] MEDS: METOPROLOL TARTRATE 25 MG TAB PO SCH ×2 (08:51→21:38)
[2019-09-23] MEDS: DUTASTERIDE 0.5 MG CAP PO SCH (08:51)
[2019-09-23] MEDS: PHENAZOPYRIDINE HCL 100 MG TAB PO SCH ×3 (08:52→17:44)
[2019-09-23] MEDS: LISINOPRIL 10 MG TAB PO SCH ×2 (08:52→17:00)
[2019-09-23] MEDS: NIFEDIPINE CR 30 MG TAB PO SCH (08:52)
[2019-09-23] MEDS: INSULIN REGULAR, HUMAN 100 UNIT/1 ML 3ML VIAL SQ SCH ×4 (08:53→21:37)
[2019-09-23] MEDS ORDERED: CLOPIDOGREL BISULFATE 75 MG TAB PO SCH (09:00)
--- NOTE | 2019-09-23 11:58 | NUR ---
PT SITTING IN CHAIR AT BEDSIDE. DR. JOEL AT BEDSIDE ROUNDING ON PT.
--- NOTE | 2019-09-23 13:14 | Progress Note ---
DATE: 09/23/2019 Cardiology Progress Note SUBJECTIVE: The patient denies chest pain or shortness of breath. He continues to have hematuria. OBJECTIVE: VITAL SIGNS: Temperature 96.8 degrees, pulse 62, respiratory rate 20, blood pressure 112/64, and oxygen saturation 96% on room air. GENERAL: Elderly man, in no acute distress. Awake and alert. LUNGS: Clear to auscultation bilaterally. No wheezes or crackles. CARDIOVASCULAR: Normal rate. Regular rhythm. No murmur. Normal S1 and S2. ABDOMEN: Soft and nontender. EXTREMITIES: No edema. : Ignacio hematuria observed. CARDIAC MEDICATIONS: Nifedipine 30 mg p.o. daily, lisinopril 10 mg p.o. b.i.d., Plavix 75 mg p.o. daily, metoprolol tartrate 50 mg p.o. q.12 hours, and atorvastatin 40 mg p.o. at bedtime. LABORATORY DATA: WBC 7.79, hemoglobin 11.7, hematocrit 37.3, and platelets 230. Sodium 141, potassium 4.4, chloride 113, CO2 19, BUN 25, and creatinine 0.92. IMPRESSION: 1. Hematuria. 2. Bladder mass. 3. Mild aortic stenosis. 4. Ewxv-wi-idwstndl aortic regurgitation. 5. Paroxysmal atrial fibrillation. 6. Coronary artery disease with recent LAD PCI. 7. Chronic diastolic heart failure. RECOMMENDATIONS: Plavix has been resumed. Remain off Eliquis and aspirin at this time. Monitor hematuria. Continue current cardiac medications otherwise. No further cardiac evaluation is indicated at this time. Thank you for this consult. We will continue to follow. Aimee Hayden MD ABS/MODL /[id number]
--- NOTE | 2019-09-23 20:07 | NUR ---
received report. no ss of distress noted. tele in place. de la garza draining to gravity. no co pain at time. will cont to follow poc. call gonzalez within reach.
--- NOTE | 2019-09-23 21:30 | NUR ---
assisted pt to bathroom. lg bm noted. pt cleaned, de la garza care given, and linen changed. pt tolerated well. no distress noted. call gonzalez within reach.
[2019-09-23] MEDS: ATORVASTATIN 40 MG TAB PO SCH (21:35)
[2019-09-24] VITALS: BP 118/55
--- NOTE | 2019-09-24 | NUR ---
tele report hr dropped to 38 then remained in the 50's. no distress noted. pt sleeping. call gonzalez within reach.
[2019-09-24 04:00] VITALS: BP 127/58
--- NOTE | 2019-09-24 04:37 | NUR ---
pt resting. no ss of distress noted. call gonzalez within reach.
[2019-09-24] MEDS: AMPICILLIN SOD 1 GM/NS 50ML 50 ML IV SCH ×2 (05:31→13:31)
--- NOTE | 2019-09-24 06:31 | NUR ---
dr jaime abraham at time. md made aware of low hr. md ordered ekg. respiratory made aware.
--- NOTE | 2019-09-24 06:40 | NUR ---
D/C summary Principal Dx: Gross Hematuria Acute colitis Bradyarrhythmia Secondary Dx: PAF DM2 Overweight BMI 28.6 Nicotine dependence in remission CAD with hx stents in 06/2019 PLAN Bladder irrigation; urology eval; IVF; hba1c/lipids; ssi; 09/16/19 Hba1c/LDL 7.341; f/u cystoscopy; check H/H; Uncontrolled HTN- adjust meds; 09/17 Hb somewhat stable; Strep viridans UTI; KENIA- mild; monitor; f/u cystoscopy. 09/18 check labs; 09/19 cystoscopy pending; 09/20 Cystoscopy done- clot removed; continued bladder irrigation; plans for TURP. 09/21 replace K; f/u urology 09/22 TURP pending; 09/23 f/u labs; s/p TURP; d/c planning; 09/24 bradycardia overnight- resolved; reduce BB; monitor CCB; check 12 lead EKG. d/c home with HH/PT and de [place] garza f/u pcp 1 week and 2 weeks and your supervisor powdered sugar 1 week stable d/c>35mins Leno Arteaga MD, PhD.
--- NOTE | 2019-09-24 06:51 | NUR ---
dr sandoval notified of ekg results. no new orders given at time.
[2019-09-24] MEDS: FAMOTIDINE 20 MG TAB PO SCH (07:30)
[2019-09-24] MEDS: INSULIN REGULAR, HUMAN 100 UNIT/1 ML 3ML VIAL SQ SCH ×2 (07:30→11:30)
[2019-09-24 07:55] VITALS: BP 133/62
[2019-09-24] MEDS: SODIUM CHLORIDE 0.9% 1000ML 1,000 ML IV SCH (09:00)
[2019-09-24] MEDS ORDERED: METOPROLOL TARTRATE 25 MG TAB PO SCH (09:00)
[2019-09-24] MEDS: DOCUSATE SODIUM 100 MG CAP PO SCH (09:29)
[2019-09-24] MEDS: DUTASTERIDE 0.5 MG CAP PO SCH (09:29)
[2019-09-24] MEDS: TERAZOSIN HCL 5 MG CAP PO SCH (09:29)
[2019-09-24] MEDS: CLOPIDOGREL BISULFATE 75 MG TAB PO SCH (09:30)
[2019-09-24] MEDS: PHENAZOPYRIDINE HCL 100 MG TAB PO SCH ×2 (09:30→13:31)
[2019-09-24] MEDS: LISINOPRIL 10 MG TAB PO SCH (09:30)
[2019-09-24] MEDS: NIFEDIPINE CR 30 MG TAB PO SCH (09:30)
[2019-09-24 10:00] VITALS: BP 133/62
[2019-09-24 11:52] VITALS: BP 132/92
--- NOTE | 2019-09-24 12:23 | NUR ---
Orders per Dr. Arteaga for home health and walker and he will discharge patient and reconcile medications.
[2019-09-24] MEDS ORDERED: LOPRESSOR25 MG PO (13:34)
[2019-09-24] MEDS ORDERED: NIFEDIPINE ER30 M1 PO (13:34)
--- NOTE | 2019-09-24 14:43 | NUR ---
Patient cleared by urologist and business writer for discharge, stopped Eliquis and will continue on Plavix, appointment scheduled to see business writer and will see urologist in 1-2 weeks at which time Newman will be removed. Educated patient and on how to care for Newman and leg bag, and patient arguing and walked out of room stating 'I am not going to take this anymore'. Patient states she is always like that but she will be fine. IV line removed with cath tip in place, dressing applied, provided with discharge documentation and prescription and contacts for f/u appointment. Dr. Arteaga notified an discharged patient.
[2019-09-24] MEDS: ACETAMINOPHEN/CODEINE 300MG - 30MG TAB PO PRN (14:49)
--- NOTE | 2019-09-24 22:07 | Progress Note ---
DATE: 09/24/2019 Cardiology Progress Note SUBJECTIVE: The patient denies chest pain or shortness of breath. OBJECTIVE: VITAL SIGNS: Temperature 96.6 degrees, pulse 60 respiratory rate 18, blood pressure 132/92, and oxygen saturation 98% on room air. GENERAL: Awake, alert, in no acute distress. LUNGS: Clear to auscultation bilaterally. No wheezes or crackles. CARDIOVASCULAR: Normal rate. Regular rhythm. No murmur. Normal S1, S2. ABDOMEN: Soft and nontender. EXTREMITIES: No edema. Gross hematuria remains. CARDIAC MEDICATIONS: Plavix 75 mg p.o. daily, nifedipine 30 mg p.o. daily, lisinopril 10 mg p.o. b.i.d., metoprolol tartrate 12.5 mg p.o. q.12 hours. LABORATORY DATA: None today. TELEMETRY: Atrial fibrillation. IMPRESSION: 1. Hematuria. 2. Bladder mass. 3. Mild aortic stenosis, tyet-xy-lpjunnrm aortic regurgitation. 4. Paroxysmal atrial fibrillation. 5. Coronary artery disease, status post recent LAD PCI. 6. Chronic diastolic heart failure. RECOMMENDATIONS: Continue Plavix. Remain off Eliquis at this time. Monitor hematuria. Continue current cardiac medications otherwise. No further cardiac evaluation is indicated at this time. He was instructed to follow up in the office in two weeks. Thank you for this consult. We will continue to follow. Aimee Hayden MD ABS/MODL /[id number]
--- NOTE | 2019-11-05 00:57 | Operative Report ---
DATE OF PROCEDURE: 09/19/2019 SURGEON: Nick Drew MD PREOPERATIVE DIAGNOSES: 1. Clot retention. 2. Gross hematuria. 3. Urinary tract infection. POSTOPERATIVE DIAGNOSES: 1. Clot retention. 2. Gross hematuria. 3. Urinary tract infection. OPERATIONS PERFORMED: 1. Cystourethroscopy with evacuation of clots (separate procedure performed for diagnosis of the clot retention). 2. Cystourethroscopy with bilateral ureteral catheterization and retrograde ureteropyelography (separate procedure performed for the hematuria and urinary tract infection). 3. Interpretation of retrograde ureteropyelography. 4. Supervision of fluoroscopy, no radiologist present. 5. Interpretation of cystography. ANESTHESIA: General. COMPLICATIONS: None. CLINICAL SUMMARY: Cristian Harris is an 84-year-old male with the above preoperative diagnoses. He is brought for the above procedures. The patient's Newman catheter is failing to draining and clot retention. He is aware of the risks of bleeding, infection, injury to adjacent structures, need for additional procedures, and elected to proceed. OPERATIVE PROCEDURE IN DETAIL: Informed consent was verified. Cristian Harris was properly identified, taken to the operating room, and placed on the cystoscopy table in supine position. Anesthesia was uneventfully begun. The patient was then carefully and gently repositioned with all pressure points well padded. His genitalia were prepared and draped in usual sterile fashion. The cystoscope sheath with the visual obturator in place was atraumatically inserted into the patient's urethra, was guided unremarkable the very distal urethra. The proximal urethra was very friable. There was a large blood clot in the bulbar region. This clot was evacuated. We went through the prostate bed, which was significant for trilobar prostatic hypertrophy with the intravesical large friable median lobe that was an obvious source of bleeding. Trabeculations were extremely heavy with diffuse small diverticular formation. There were no suspicious lesions could be identified. All clots were evacuated. An 8-Gibraltarian catheter was used to cannulate each ureter and retrograde ureteropyelograms were performed. Interpretation of retrograde ureteropyelograms contrast was instilled in retrograde fashion bilaterally. There was ureteral tortuosity noted bilaterally. There were no suspicious lesions. There were no suspicious filling defects. There were no stones. The right ureter was slow to drain in the area of impingement on drainage appeared to be the region of the ureterovesical junction. The cystoscope was withdrawn and Newman catheter placed. It was irrigated to further ensure and work properly. Contrast was then injected and performed cystography. Interpretation of cystography, the bladder wall was heavily trabeculated. The Newman catheter balloon was within the bladder. There was filling defect consistent with intravesical median lobe that was noted. Vesicoureteric reflux could not be judged in the study. A belladonna and opium suppository were placed revealing a 50 g prostate, that is smooth, nonfluctuant without any nodules. The patient was then uneventfully reversed from anesthesia and taken to recovery in stable condition. There were no complications to the procedure. He tolerated the procedure well. Plans will be to monitor the patient during this hospitalization and of course on an ongoing basis. The patient will need definitely to return back to the operating room for both circumcision for severe phimosis as well as management of his obstructive BPH and friable easily bleeding intravesical median lobe. Nick Drew MD OH/MODL /[id number] cc: Jose Guadalupe Lau DO
--- NOTE | 2019-11-05 01:07 | Operative Report ---
DATE OF PROCEDURE: 09/22/2019 SURGEON: Nick Drew MD PREOPERATIVE DIAGNOSES: 1. Severe phimosis. 2. Obstructive benign prostatic hyperplasia. POSTOPERATIVE DIAGNOSES: 1. Severe phimosis. 2. Obstructive benign prostatic hyperplasia. PROCEDURE PERFORMED: 1. Circumcision (separate procedure performed for the phimosis). 2. Regional nerve block (separate procedure performed for the postoperative pain control and not required for the actual performance of surgery, which is done under general anesthesia). 3. Cystourethroscopy with photoselective vaporization of the prostate using with GreenLight laser (separate procedure performed for the obstructive BPH). ANESTHESIA: General. COMPLICATIONS: None. CLINICAL SUMMARY: Cristian Harris is an 84-year-old man with the above preoperative diagnoses. He is brought for the above procedures. He is aware of the risks of bleeding, infection, injury to adjacent structures, need for additional procedures and elected to proceed. OPERATIVE PROCEDURE IN DETAIL: After informed consent was verified, Cristian Harris was properly identified, taken to the operating room, placed on the cystoscopy table in supine position. Anesthesia was uneventfully begun. The patient's genitalia were then shaved, prepared, and draped in usual sterile fashion. Marcaine without epinephrine was utilized to infiltrate subcutaneously circumferentially at the base of the penis as well as in the region of the dorsal penile nerves. This was done for postoperative pain control and not required for the actual performance of surgery, which was done under general anesthesia. A circumferential incision was then made overlying the constantino of the glans penis. The foreskin was fully retracted and secondary incision made approximately 5 mm away from the constantino of the glans penis along the inner preputial skin. A sleeve circumcision was then performed. The foreskin was removed. Pinpoint electrocautery was utilized to achieve hemostasis. The patient's incision was then approximated with 4-0 chromic suture in running fashion. Excellent cosmetic result was achieved. The patient was then carefully and gently repositioned in dorsal lithotomy position with all pressure points well padded. He was redraped. The laser sheath with the visual obturator in place was atraumatically inserted in the patient's urethra and was guided down the urethra, which exhibited no strictures through the normal sphincteric region into the patient's prostate bed. We proceeded with utilizing a GreenLight laser to completely vaporize the median lobe, taking care to avoid injuring the ureteral orifices. We then vaporized both lateral lobes. After delivering [id number] joules of energy over a total laser time of 32 minutes, the patient had a wide open prostatic bed with excellent hemostasis. The cystoscope was removed. A Newman catheter was placed. It was irrigated to further ensure it worked properly. It was placed on continuous irrigation. The patient was uneventfully reversed from anesthesia and taken to recovery room in stable condition. There were no complications to the procedure. He tolerated the procedure well. Exclusive postop instructions were ordered on the chart. We will follow with the patient during his hospitalization and of course on an ongoing basis. MD REKHA Puentes/DAVEY /[id number] cc: Jose Guadalupe Lau DO
== END 2019-09-24 15:00 | disposition home or self-care (01) | DRG 666 ==
LOC: ER 10:12 → MED/SURG 11:52 → ER 12:26 → OBSVTOIN 09-15 17:19
PROVIDERS: ADMIT Internal Medicine; ATTEND Internal Medicine
PROC: BT141ZZ Fluoroscopy of Kidneys, Ureters and Bladder using Low Osmolar Contrast (ICD-10-PCS; 2019-09-19)
PROC: 0T9D80Z Drainage of Urethra with Drainage Device, Via Natural or Artificial Opening Endoscopic (ICD-10-PCS; principal; 2019-09-19 14:30)
PROC: 0VTTXZZ Resection of Prepuce, External Approach (ICD-10-PCS; 2019-09-22)
PROC: 0V508ZZ Destruction of Prostate, Via Natural or Artificial Opening Endoscopic (ICD-10-PCS; 2019-09-22 16:37)
DX: N30.01 Acute cystitis with hematuria (principal); I50.32 Chronic diastolic (congestive) heart failure; N17.9 Acute kidney failure, unspecified; B95.4 Other streptococcus as the cause of diseases classified elsewhere; N47.1 Phimosis; D64.9 Anemia, unspecified; R81 Glycosuria; K52.9 Noninfective gastroenteritis and colitis, unspecified; E11.9 Type 2 diabetes mellitus without complications; I25.10 Atherosclerotic heart disease of native coronary artery without angina pectoris; E78.5 Hyperlipidemia, unspecified; Z90.49 Acquired absence of other specified parts of digestive tract; Z95.5 Presence of coronary angioplasty implant and graft; Z72.89 Other problems related to lifestyle; N40.1 Benign prostatic hyperplasia with lower urinary tract symptoms; R33.8 Other retention of urine; N28.1 Cyst of kidney, acquired; N32.9 Bladder disorder, unspecified; I48.0 Paroxysmal atrial fibrillation; I11.0 Hypertensive heart disease with heart failure; I35.0 Nonrheumatic aortic (valve) stenosis; I35.1 Nonrheumatic aortic (valve) insufficiency; E66.3 Overweight; Z68.28 Body mass index [BMI] 28.0-28.9, adult; F17.201 Nicotine dependence, unspecified, in remission; I49.8 Other specified cardiac arrhythmias; N32.89 Other specified disorders of bladder; N13.8 Other obstructive and reflux uropathy; Z79.84 Long term (current) use of oral hypoglycemic drugs
CPT/HCPCS: 36415; 51700; 52648; 74177; 74420; 80048; 80053; 80061; 81001; 82948; 83036; 83880; 85014; 85018; 85025; 85610; 85730; 87086; 88304; 93005; 93041; 96367; 96372; 97139; 99284; C1758; G0378; J0290; J0696; J1100; J1817; J2001; J2270; J2405; J3010; J7030; J7040; J7121; Q9967

== ENCOUNTER → 2020-07-30 | Outpatient (CLI) | payer MEDICARE ==
[~2020-07-30] MED LIST changes: +ASPIRIN81 MG PO; +ATORVASTATIN CA20 MG PO; +AVODART0.5 MG PO; +CLOPIDOGREL75 MG PO; +ELIQUIS5 MG PO; +LISINOPRIL10 MG PO; +LOPRESSOR25 MG PO; +METFORMIN HCL500 MG PO; +NIFEDIPINE ER30 M1 PO; -REGADENOSON 0.4 MG/5 ML SYR IV ONE; +TERAZOSIN HCL5 MG PO
== END ==
LOC: RAD 11:44
PROVIDERS: ATTEND Internal Medicine
DX: I50.31 Acute diastolic (congestive) heart failure (principal)
CPT/HCPCS: 93306